=== PATIENT | female | born 1960 | race Caucasian/White ===

== ENCOUNTER 2018-09-07 08:31 | Emergency (ER) | payer OTHER ==
[2018-09-07 08:41] VITALS: BP 141/83
--- NOTE | 2018-09-07 09:01 | UC ---
Lower Extremity/Ankle HPI - HPI Summary HPI Summary: 58-year-old female presents with complaints of left leg pain. States approximately one month ago she was on vacation in [place] and was doing a lot of long distance traveling in her car. She was noting a lot of bilateral ankle swelling at the time which she states she has on occasion. She later noted in the area of tenderness to the lateral aspect of her left lower leg that appeared to be a bruise which has persisted since that time. States last night she started having a lot of aching pain in the left leg extending from her mid calf to mid thigh. Denies calf pain, swelling, erythema, chest pain, or shortness of breath. - History of Current Complaint Chief Complaint: UCLowerExtremity Stated Complaint: LT LEG PAIN Time Seen by Provider: 09/07/18 08:56 Hx Obtained From: Patient Pain Intensity: 5 - Allergies/Home Medications Allergies/Adverse Reactions: Allergies Allergy/AdvReac Type Severity Reaction Status Date / Time citalopram [From Celexa] Allergy Hives Verified 09/07/18 08:41 doxycycline AdvReac Severe Unknown Verified 09/07/18 08:41 Reaction Details OPIODS AdvReac Nausea Uncoded 09/07/18 08:41 Home Medications: Home Medications Estradiol/Levonorgestrel [Climara Pro] 1 dis TD DAILY WITH MEAL 09/07/18 [ History Confirmed 09/07/18] Meclizine TAB* [Antivert 12.5 TAB*] 12.5 mg PO TID PRN 09/07/18 [History Confirmed 09/07/18] Meloxicam 7.5 mg PO DAILY WITH MEAL 09/07/18 [History Confirmed 09/07/18] Ondansetron HCl [Zofran] 8 mg PO DAILY WITH MEAL 09/07/18 [History Confirmed ] PMH/Surg Hx/FS Hx/Imm Hx - Additional Past Medical History Additional PMH: Jeremiah's granulomatoss Cardiovascular History: Hypertension GI/ History: Gastroesophageal Reflux - Surgical History Surgical History: Yes Surgery Procedure, Year, and Place: GALLBLADDER - Family History Known Family History: Positive: Non-Contributory - Social History Occupation: Employed Full-time Lives: With Family Alcohol Use: Occasionally Substance Use Type: None Smoking Status (MU): Never Smoked Tobacco Have You Smoked in the Last Year: No Review of Systems All Other Systems Reviewed And Are Negative: Yes Constitutional: Negative: Fever, Chills Skin: Positive: Other - See HPI Respiratory: Negative: Shortness Of Breath, Cough Cardiovascular: Negative: Palpitations, Chest Pain Gastrointestinal: Positive: Negative Genitourinary: Positive: Negative Motor: Negative: Weakness Neurovascular: Negative: Decreased Sensation Musculoskeletal: Negative: Arthralgia, Calf Tenderness, Decreased ROM, Edema Neurological: Positive: Negative Is Patient Immunocompromised?: No Physical Exam - Summary Physical Exam Summary: GENERAL APPEARANCE: Well developed, well nourished, alert and cooperative, and appears to be in no acute distress. CARDIAC: Normal S1 and S2. No S3, S4 or murmurs. Rhythm is regular. There is no peripheral edema, cyanosis or pallor. Extremities are warm and well perfused. Capillary refill is less than 2 seconds. Peripheral pulses intact. LUNGS: Clear to auscultation without rales, rhonchi, wheezing or diminished breath sounds. ABDOMEN: Positive bowel sounds. Soft, nondistended, nontender. No guarding or rebound. No masses or hepatosplenomegally. MUSKULOSKELETAL: ROM intact to all extremities. No joint erythema or tenderness. Normal muscular development. Normal gait. EXTREMITIES: No significant deformity or joint abnormality. Circular area of ecchymosis approximately 2.5 cm in diameter noted to the lateral aspect of the left lower leg. Left calf supple and non-tender. No edema. Multiple varicosities noted to bilateral lower extremities without evidence of thrombophlebitis. SKIN: Skin normal color, texture and turgor with no lesions or eruptions. Triage Information Reviewed: Yes Vital Signs: Initial Vital Signs Temp 97.1 F 09/07/18 08:36 Pulse 82 09/07/18 08:36 Resp 18 09/07/18 08:36 BP 141/83 09/07/18 08:36 Pulse Ox 99 09/07/18 08:36 Vital Signs Reviewed: Yes Diagnostics - Radiology No standard instances Radiology Interpretation Completed By: Radiologist Summary of Radiographic Findings: Order Information: VL LOWER EXT VEINS LEFT. Accession Number: [id number]. CPT: 78135. INDICATION: Left leg pain. COMPARISON: There are no relevant prior studies available for comparison. TECHNIQUE: Multiple real-time, color flow and Doppler tracings of the left lower extremity were obtained. FINDINGS: The common femoral, femoral, profunda femoral and popliteal veins all demonstrate normal compressibility, augmentation with compression and phasic response with respiration. The posterior tibial and peroneal veins demonstrate normal compressibility and augmentation with compression. No fluid collection or mass is seen in the region of the patient's lump in the lateral calf. IMPRESSION: NO EVIDENCE FOR DEEP VENOUS THROMBOSIS. Lower Extremity Course/Dx - Course Course Of Treatment: 58-year-old female presents with complaints of left leg pain. States approximately one month ago she was on vacation in [place] and was doing a lot of long distance traveling in her car. She was noting a lot of bilateral ankle swelling at the time which she states she has on occasion. She later noted in the area of tenderness to the lateral aspect of her left lower leg that appeared to be a bruise which has persisted since that time. States last night she started having a lot of aching pain in the left leg extending from her mid calf to mid thigh. Denies calf pain, swelling, erythema, chest pain, or shortness of breath. Afebrile. Vital signs stable. Exam was remarkable for circular area of ecchymosis approximately 2.5 cm in diameter noted to the lateral aspect of the left lower leg. Left calf supple and non-tender. No edema. Multiple varicosities noted to bilateral lower extremities without evidence of thrombophlebitis. Venous ultrasound of the left lower extremity was obtained which showed no DVT. The area of concern was also ultrasounded and no fluid collection or mass was noted. I'm recommending watchful waiting at this time. She is to follow-up with primary care provider in 5-7 days if symptoms do not improve. Anticipatory guidance and warning symptoms are reviewed with the patient. Verbalizes understanding and agrees with plan of care. - Differential Dx/Diagnosis Differential Diagnosis/HQI/PQRI: Contusion, DVT, Phlebitis Provider Diagnosis: Left leg pain Discharge - Sign-Out/Discharge Documenting (check all that apply): Patient Departure All imaging exams completed and their final reports reviewed: Yes - Discharge Plan Condition: Stable Disposition: HOME Patient Education Materials: Leg Pain (ED) Referrals: Diego Reece MD [Primary Care Provider] - 5 Days Additional Instructions: The ultrasound of your leg today was normal. There was no evidence of a blood clot or mass. Follow up with your primary care provider in 5-7 days if symptoms persist. Seek immediate medical attention in the emergency room if you have severe leg pain, chest pain, shortness of breath, or any worsening of symptoms. - Billing Disposition and Condition Condition: STABLE Disposition: Home - Attestation Statements Provider Attestation: Per institutional requirements, I have reviewed the chart, however, I was not consulted specifically or made aware of this patient by the midlevel provider. I did not personally evaluate, interact with , or disposition this patient.
== END 2018-09-07 10:14 | disposition home or self-care (01) ==
LOC: UCEAST 08:31
DX: M79.605 Pain in left leg (principal); I83.93 Asymptomatic varicose veins of bilateral lower extremities; M31.30 Wegener's granulomatosis without renal involvement; I10 Essential (primary) hypertension; K21.9 Gastro-esophageal reflux disease without esophagitis; Z88.1 Allergy status to other antibiotic agents; Z88.5 Allergy status to narcotic agent; Z88.8 Allergy status to other drugs, medicaments and biological substances
CPT/HCPCS: 99211; G0463

== ENCOUNTER 2019-05-09 08:31 | Emergency (ER) | payer OTHER ==
--- OUTSIDE RECORDS SUMMARY | 2019-05-09 08:36 | XMS REPORT | Continuity of Care Document ---
:1960 External Reference #:[id number] Author Name Tri Nair O.D. (transmitted by agent of provider Rosa Greene) Address [address] [place] [address] Care Team Providers Name Role Phone Diego Reece M.D. - Endocrinology, Care Team Information Bottle Selector [phone] Diabetes & Metabolism Mario Camacho MD - Rheumatology Care Team Information Bottle Selector [phone] Sofía Vizcaino M.D. - Neurology Care Team Information Bottle Selector Problems Active Problems Provider Date Palpitations Onset: Keratoconjunctivitis sicca Krista Francis O.D. Onset: 10/12/2014 Tear film insufficiency Krista Francis O.D. 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 Onset: 10/12/2014 Refractory migraine Krista Francis O.D. Onset: 10/12/2014 Visual disturbance Krista Francis O.D. Onset: 01/03/2016 Chronic allergic conjunctivitis Krista Francis O.D. Onset: 01/17/2016 Internal hordeolum Tri Nair O.D. Onset: 01/19/2016 Degeneration of macula due to cyst, hole Krista Francis O.D. Onset: or pseudohole Filamentary keratitis Krista Francis O.D. Onset: 07/25/2016 Superficial punctate keratitis Krista Francis O.D. Onset: 07/25/2016 Serous detachment of retinal pigment Krista Francis O.D. Onset: 2016 epithelium Taking medication Krista Francis O.D. Onset: 12/11/2016 Cerebral vasculitis Onset: Nuclear senile cataract Krista Francis O.D. 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 Onset: Social History Type Date Description Comments Sex Unknown ETOH Use Occasionally consumes alcohol Tobacco Use Start: Unknown Patient has never smoked Recreational Drug Use Denies Drug Use Smoking Status Reviewed: 04/08/19 Patient has never smoked Allergies, Adverse Reactions, Alerts Active Allergies Reaction Severity Comments Date Celexa 09/22/2014 Doxycycline 09/22/2014 Medications Active Medications SIG Qnty Indications Ordering Provider Date FML Forte 1 drop left eye 15ml H16.142 Tri Macarioy, 04/08/2019 0.25% twice a day O.DStefania Suspension Theratears several times a Krista Morales 06/03/2017 0.25% day Dalila Francis Solution Lid Scrubs once a day Krista Morales 10/03/2016 Dalila Francis Refresh several times a 50units Krista Morales 04/30/2016 1.4-0.6% day Dalila Francis Solution Probiotic Unknown Capsules Climara Pro Unknown 0.045-0.015mg/Day Patches Weekly Zofran as needed - Unknown 4mg Tablets rarely Warm Compresses as needed Ruth Butt, O.DStefania Ventolin HFA as needed Unknown 108(90Base) mcg/Act Aerosol Blink Tears as needed Krista Morales Lubricating Eye Drops Dalila Francis 0.25% Solution Systane as needed Krista Morales 0.4-0.3% Dalila Francis Solution Systane Lid Wipes Krista Morales Pads Dalila Francis Meclizine HCL Take 1 Tablet By Unknown 12.5mg Mouth Two Times Tablets Daily as Needed For Vertigo Symbicort as needed Unknown 80-4.5mcg/Act Aerosol Immunizations Description No Information Available Vital Signs Date Vital Result Comment 05/13/2018 4:36pm BP Systolic 117 mmHg r wrist BP Diastolic 79 mmHg r wrist Results Description No Information Available Procedures Date Code Description Status 04/08/2019 33727 Est Patient Intermediate Exam Completed Medical Devices Description No Information Available Encounters Description No Information Available Assessments Date Code Description Provider 04/08/2019 H16.142 Punctate keratitis, left eye Tri Nair O.D. Plan of Treatment Future Appointment(s):04/15/2019 4:15 pm - Tri Nair O.D. at Mario Jon [facility], [facility]06/08/2018 - Tri Nair O.D.H16.142 Punctate keratitis, left eyeNew Medication:FML Forte 0.25 % - 1 drop left eye twice a dayComments: Smoking can increase the risk of developing or worsening any eye related disease , as well as affect your overall health. If you are a smoker, we strongly recommend that you quit.If you are not a smoker, we strongly recommend that you do not start. start FML drops twice a day in the left eyeif your symptoms worsen, please call the office to be seenFollow up:1 week or sooner as needed Functional Status Description No Information Available Mental Status Description No Information Available Referrals Description No Information Available
--- OUTSIDE RECORDS SUMMARY | 2019-05-09 08:36 | XMS REPORT | Continuity of Care Document ---
:1960 External Reference #:[id number] Author Name Krista Francis O.D. Address [address] [place] [id number] Care Team Providers Name Role Phone Diego Reece M.D. - Endocrinology, Care Team Information Capital Markets Specialist [phone] Diabetes & Metabolism Mario Camacho MD - Rheumatology Care Team Information Capital Markets Specialist [phone] Sofía Vizcaino M.D. - Neurology Care Team Information [employer] Markets Specialist Problems Active Problems Provider Date Palpitations Onset: [...] Use Denies Drug Use Smoking Status Reviewed: 04/16/19 Patient has never smoked Allergies, Adverse Reactions, Alerts Active Allergies Reaction Severity Comments Date Celexa 09/22/2014 Doxycycline 09/22/2014 Medications Active Medications SIG Qnty Indications Ordering Provider Date FML Forte 1 drop left eye 15ml H04.123 Tri Nair, 04/08/2019 0.25% twice a day O.DStefania Suspension [...] Vertigo Symbicort as needed Unknown 80-4.5mcg/Act Aerosol Sulfamethoxazole-Trim Unknown ethoprim 400-80mg/5ML Solution Immunizations Description No Information Available Vital Signs Date Vital Result Comment 05/13/2018 4:36pm BP Systolic 117 mmHg r wrist BP Diastolic 79 mmHg r wrist Results Description No Information Available Procedures Date Code Description Status 04/08/2019 99769 Est Patient Intermediate Exam Completed Medical Devices Description No Information Available Encounters Description No Information Available Assessments Date Code Description Provider 04/16/2019 H04.123 Dry eye syndrome of bilateral lacrimal Krista Francis O.D. glands 04/08/2019 H16.142 Punctate keratitis, left eye Tri Nair O.D. Plan of Treatment 04/16/2019 - Krista Francis O.D.H04.123 Dry eye syndrome of bilateral lacrimal glandsComments:Smoking can increase the risk of developing or worsening any eye related disease, as well as affect your overall health. If you are a smoker, we strongly recommend that you quit.If you are not a smoker, we strongly recommend that you do not start. stop fml dropsstart gel dropspreservative free tearshot compress 1-2xdayFollow up:3-4 week recheck Functional Status Description No Information Available Mental Status Description No Information Available Referrals Description No Information Available
--- OUTSIDE RECORDS SUMMARY | 2019-05-09 08:37 | XMS REPORT | Continuity of Care Document ---
:1960 External Reference #:[id number] Author Name Brandin Chanel MD (transmitted by agent of provider Ruth Palencia) Address [address] [place] [address] Care Team Providers Name Role Phone Diego Reece MD - Endocrinology, Care Team Information Denture Technician Diabetes & Metabolism Mario Camacho MD - Rheumatology Care Team Information Denture Technician [phone] Ngoc Fowler MD - Pulmonary Care Team Information Denture Technician Disease Problems Active Problems Provider Date Vertigo Sofía Vizcaino M.D. Onset: 11/20/2015 Note: history of BPV Migraine with aura Sofía Vizcaino M.D. Onset: 11/20/2015 Note: History of opthalmic migraines Disorder of lung Ngoc Fowler MD Onset: 04/04/2017 Social History Type Date Description Comments Sex Unknown ETOH Use Occasionally consumes alcohol Tobacco Use Start: Unknown Patient has never extensive history of smoked secondhand smoke exposure Recreational Drug Use Denies Drug Use Smoking Status Reviewed: 03/18/19 Patient has never extensive history of smoked secondhand smoke exposure Exercise Type/Frequency Exercises regularly Walking and bike riding and hiking. exercises 3 days/week Allergies, Adverse Reactions, Alerts Active Allergies Reaction Severity Comments Date Citalopram Urticaria Moderate 11/20/2015 Aspirin Nausea Moderate 11/20/2015 Doxycycline Ringing/fullness in ears Moderate 11/20/2015 Barbiturates Nausea and Vomiting Severe 11/20/2015 Nortriptyline heart palpitations 06/07/2016 Celexa 04/04/2017 Medications Active Medications SIG Qnty Indications Ordering Date Provider Cipro 1 tab po bid 10tabs Arminda 500mg Guillermo, MD 9 Tablets Clonazepam take 1 by mouth twice a 20tabs Sofía Vizcaino, day, as needed for M.D. 9 0.125mg Tablets vertigo/ anxiety Dispers Meclizine HCL take one capsule/tablet 60tabs M31.30 Mario Camacho, by mouth twice daily as M.D. 9 12.5mg Tablets needed for vertigo Voltaren apply 2 grams twice 200units Mario Camacho, 1% Gel daily as needed for M.D. 8 pain to the feet Symbicort 2 puff twice a day as 13.8gm Leydi needed OLY Slaughter 7 80-4.5mcg/Act Aerosol Zofran take 1 by [email or web address] as 30tabs Sofía Vizcaino, 4mg needed M.D. 7 Tablets Anucort-HC insert suppository in Unknown 25mg rectum twice a day as 0 Suppository needed Climara apply 1 Unknown patchtransdermally 0 0.025mg/24HR once weekly Patches Weekly Ventolin HFA 2 puffs by mouth every 16gm Ngoc 6h as needed MD Malcolm 0 108(90Base) mcg/Act Aerosol Mupirocin Apply To Inside Of Nose Unknown 2% Two Times Daily as 0 Ointment needed Triamcinolone Mix With Mupirocin And Unknown Acetonide Apply To Inside Of Nose 0 0.1% Two Times Daily as Ointment needed Propranolol HCL one tablet daily as Unknown needed for palpitations 0 20mg Tablets History Medications Naltrexone HCL 4.5 mg compounded 15gm R20.8 Mario Camacho, 11/18/2018 - in capsules by Sejal 02/16/2019 Powder mouth every day 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 Leydi 11/04/2018 - Advancement Device mandibular advance OLY Slaughter 02/16/2019 device for mild Device sleep apnea CBD [place] apply every 12 5units Z79.899 Mario Camacho, 10/01/2018 - hours as needed to M.DStefania 02/16/2019 4-3-9-1.2% Patches painful regions Medications Administered in Office Medication SIG Qnty Indications Ordering Provider Date Depomedrol 40MG Deangelo Ríos MD 02/08/2016 Injection Immunizations CPT Code Status Date Vaccine Lot # [id number] Given 03/24/2018 Pneumococcal Conjugate Vaccine 13 Valent For [id number] Intramuscular Use 22157 Given 02/10/2018 Influenza Virus Vaccine, Quadrivalent, Split, [id number] Preservative Free Vital Signs Date Vital Result Comment 03/18/2019 3:32pm Height 70 inches 5'10" Weight 200.00 lb Heart Rate 85 /min BP Systolic Sitting 137 mmHg L arm BP Diastolic Sitting 86 mmHg L arm O2 % BldC Oximetry 100 % BMI (Body Mass Index) 28.7 kg/m2 02/22/2019 10:35am Height 70 inches 5'10" Weight 200.00 lb Heart Rate 73 /min BP Systolic Sitting 126 mmHg L arm BP Diastolic Sitting 82 mmHg L arm O2 % BldC Oximetry 99 % BMI (Body Mass Index) 28.7 kg/m2 Results Test Date Facility Test Result H/L Range Note Neph Routine 03/15/2019 [facility] Total Protein < 4 mg/dL [address] Random Urine [place], [place] [id number] [phone] Creatinine Random Urine 35.78 mg/dL CBC Auto 03/15/2019 [facility] White Blood 6.6 10^3/uL Normal 3.5-10.[address] Count [place], [place] [id number] [phone] Red Blood Count 5.33 10^6/uL High 3.70-4.87 Hemoglobin 15.7 g/dL Normal 12.0-16.0 Hematocrit 46 % Normal 35-47 Mean Corpuscular Volume 86 fL Normal 80-97 Mean Corpuscular Hemoglobin 30 pg Normal 27-31 Mean Corpuscular HGB Conc 34 g/dL Normal 31-36 Red Cell Distribution Width 13 % Normal 10-15 Platelet Count 261 10^3/uL Normal 150-450 Mean Platelet Volume 7.7 fL Normal 7.4-10.4 Abs Neutrophils 3.6 10^3/uL Normal 1.5-7.7 Abs Lymphocytes 2.2 10^3/uL Normal 1.0-4.8 Abs Monocytes 0.5 10^3/uL Normal 0-0.8 Abs Eosinophils 0.2 10^3/uL Normal 0-0.6 Abs Basophils 0.0 10^3/uL Normal 0-0.2 Abs Nucleated RBC 0.0 10^3/uL Granulocyte % 55.4 % Lymphocyte % 34.1 % Monocyte % 7.4 % Eosinophil % 2.5 % Basophil % 0.6 % Nucleated Red Blood Cells % 0.0 Urinalysis Profile 03/15/2019 [facility] Urine Color Straw [address] [place] [address] [phone] Urine Appearance Clear Urine Specific Medora 1.005 Low 1.010-1.030 Urine pH 6.0 Normal 5-9 Urine Urobilinogen Negative Negative Urine Ketones Negative Negative Urine Protein Negative Negative Urine Leukocytes Negative Negative Urine Blood 1+ Abnormal Negative Urine Nitrite Negative Negative Urine Bilirubin Negative Negative Urine Glucose Negative Negative Urine White Blood Cell Absent Absent Urine Red Blood Cell Trace(0-2/hpf) Absent Urine Bacteria Absent Absent Urine Squamous Epithelial Cell Present Abnormal Absent Basic Metabolic 03/15/2019 [facility] Sodium 138 mmol/L Normal 135-[address] [place] [address] [phone] Potassium 4.5 mmol/L Normal 3.5-5.0 Chloride 105 mmol/L Normal 101-111 Co2 Carbon Dioxide 28 mmol/L Normal 22-32 Anion Gap 5 mmol/L Normal 2-11 Glucose 90 mg/dL Normal 70-100 Blood Urea Nitrogen 19 mg/dL Normal 6-24 Creatinine 0.94 mg/dL Normal 0.51-0.95 BUN/Creatinine Ratio 20.2 High 8-20 Calcium 9.2 mg/dL Normal 8.6-10.3 Egfr Non- 61.2 >60 Egfr 74.0 >60 1 Neutrophil Cytoplasmic 03/15/2019 [facility] C-Anca Negative Negative AB [address] [place] [address] [phone] P-Anca Negative Negative 2 Anca Panel For 03/15/2019 [facility] Myeloperoxidase AB < 0.2 U [address] [place] [address] [phone] Proteinase 3 AB < 0.2 U 4 Laboratory test 03/15/2019 [facility] Myeloperoxidase AB <0.2 U [address] [place] [address] [phone] Proteinase 3 <0.2 U 6 Anti Nuclear Antibody 0.6 U 7 Erythrocyte Sed Rate 5 mm/Hr Normal 0-29 Surgical 03/10/2019 [facility] Surgical SEE RESULT [address] [place] [address] [phone] PDFReport [id number] <SEE NOTE> Platelet 03/10/2019 [facility] Platelet 269 10^3/uL Normal 150 -[address] [place] [address] [phone] Mean Platelet Volume 7.2 fL Low 7.4-10.4 Inr/Protime 03/10/2019 [facility] Inr 1.00 Normal 0.82-1.[address] [place] [address] [phone] Laboratory test 03/10/2019 [facility] Partial 33.6 Normal 26.0 -38.[address] [place] [address] PTT [phone] Urine 02/21/2019 [facility] Ur 206.[address] Microalbumin mg/[place] [address] (mg/L) [phone] Urine Creatinine 42.16 mg/dL Urine Microalbumin/Creatinine 489.5 High <31 Urine Culture And 02/21/2019 [facility] Urine SEE RESULT [address] [place] [address] [phone] Basic Metabolic 02/21/2019 [facility] Sodium 140 mmol/L Normal 135- Panel [address] [place] [address] [phone] Potassium 4.1 mmol/L Normal 3.5-5.0 Chloride 105 mmol/L Normal 101-111 Co2 Carbon Dioxide 29 mmol/L Normal 22-32 Anion Gap 6 mmol/L Normal 2-11 Glucose 110 mg/dL High 70-100 Blood Urea Nitrogen 19 mg/dL Normal 6-24 Creatinine 0.98 mg/dL High 0.51-0.95 BUN/Creatinine Ratio 19.4 Normal 8-20 Calcium 9.2 mg/dL Normal 8.6-10.3 Egfr Non- 58.3 >60 Egfr 70.5 >60 11 Urinalysis Profile 02/21/2019 [facility] Urine Appearance Cloudy [address] [place] [address] [phone] Urine Specific Medora 1.006 Low 1.010-1.030 Urine pH 6.0 Normal 5-9 Urine Urobilinogen Negative Negative Urine Ketones Negative Negative Urine Protein 2+(100 mg/dL) Abnormal Negative Urine Leukocytes 3+ Abnormal Negative Urine Blood 3+ Abnormal Negative Urine Nitrite Negative Negative Urine Bilirubin Negative Negative Urine Glucose Negative Negative Urine White Blood Cell 3+(>20/hpf) Abnormal Absent Urine Red Blood Cell 3+(>10/hpf) Abnormal Absent Urine Bacteria Absent Absent Urine Squamous Epithelial Cell Present Abnormal Absent Urine Color Red Abnormal CBC Auto 02/21/2019 [facility] White Blood 10.9 10^3/uL High 3.5-10.[address] [place] [address] [phone] Red Blood Count 5.16 10^6/uL High 3.70-4.87 Hemoglobin 15.1 g/dL Normal 12.0-16.0 Hematocrit 45 % Normal 35-47 Mean Corpuscular Volume 86 fL Normal 80-97 Mean Corpuscular Hemoglobin 29 pg Normal 27-31 Mean Corpuscular HGB Conc 34 g/dL Normal 31-36 Red Cell Distribution Width 14 % Normal 10-15 Platelet Count 257 10^3/uL Normal 150-450 Mean Platelet Volume 7.3 fL Low 7.4-10.4 Abs Neutrophils 7.9 10^3/uL High 1.5-7.7 Abs Lymphocytes 2.1 10^3/uL Normal 1.0-4.8 Abs Monocytes 0.8 10^3/uL Normal 0-0.8 Abs Eosinophils 0.1 10^3/uL Normal 0-0.6 Abs Basophils 0.0 10^3/uL Normal 0-0.2 Abs Nucleated RBC 0.0 10^3/uL Granulocyte % 72.3 % Lymphocyte % 18.9 % Monocyte % 7.2 % Eosinophil % 1.2 % Basophil % 0.4 % Nucleated Red Blood Cells % 0.0 Neph Routine 02/21/2019 [facility] Total Protein Random 69 mg/ dL [address] [place] [address] [phone] Creatinine Random Urine 42.16 mg/dL Laboratory test 02/21/2019 [facility] Anti Nuclear 0.6 U [address] [place] [address] [phone] Bety Igg AB Reflex 02/21/2019 [facility] SS-A/Ro Antibody <0.2 U [address] [place], [place] [address] [phone] SS-B/La Antibody <0.2 U 14 Sm (Ron) IgG Antibody <0.2 U 15 DRY CHAIN PULLER Antibody, IgG 0.9 U 16 Scl-70 (Scleroderma) Antibody <0.2 U 17 Ally-1 Antibody <0.2 U 18 Laboratory test 02/21/2019 [facility] Glomerular <0.2 U [address] [place] [address] Membrane [phone] Neutrophil 02/21/2019 [facility] C-Anca Negative Negative Cytoplasmic AB [address] [place] [address] [phone] P-Anca Negative Negative 20 Anca Panel For 02/21/2019 [facility] Myeloperoxidase AB < 0.2 U [address] [place] [address] [phone] Proteinase 3 AB < 0.2 U 22 Laboratory test 12/29/2018 [facility] Erythrocyte Sed 5 mm/Hr Normal 0-[address] [place] [address] [phone] C Reactive Protein 5.18 mg/L Normal <8.01 Laboratory test finding 11/27/2018 [facility] Proteinase 3 <0.2 U [address] [place] [address] [phone] Myeloperoxidase AB <0.2 U 24 Nuclear AB 11/27/2018 [facility] Nuclear Ab Positive 1:160 Abnormal 25 (Myriam) By Ifa [address] (Myriam) by Ifa, [place] [address] IgG [phone] Myriam Titer: 1:160 Myriam Pattern: Dense Fine Speck <SEE NOTE> 26 Anca AB Ser 11/12/2018 [facility] C-Anca Positive 1:32 Abnormal Negative If [address] [place], [place] [address] [phone] P-Anca Negative Negative 27 Laboratory test 11/12/2018 [facility] Erythrocyte Sed 13 mm/Hr Normal 0-[address] [place] [place] [address] [phone] CBC Auto Diff 11/12/2018 [facility] White Blood 5.9 Normal 3.5 -10.[address] Count 10^3/[place] [address] [phone] Red Blood Count 5.45 10^6/uL High 3.70-4.87 Hemoglobin 15.9 g/dL Normal 12.0-16.0 Hematocrit 47 % Normal 35-47 Mean Corpuscular Volume 86 fL Normal 80-97 Mean Corpuscular Hemoglobin 29 pg Normal 27-31 Mean Corpuscular HGB Conc 34 g/dL Normal 31-36 Red Cell Distribution Width 14 % Normal 10-15 Platelet Count 240 10^3/uL Normal 150-450 Mean Platelet Volume 8.6 fL Normal 7.4-10.4 Abs Neutrophils 3.0 10^3/uL Normal 1.5-7.7 Abs Lymphocytes 2.1 10^3/uL Normal 1.0-4.8 Abs Monocytes 0.5 10^3/uL Normal 0-0.8 Abs Eosinophils 0.2 10^3/uL Normal 0-0.6 Abs Basophils 0.0 10^3/uL Normal 0-0.2 Abs Nucleated RBC 0.0 10^3/uL Granulocyte % 50.9 % Lymphocyte % 36.4 % Monocyte % 9.1 % Eosinophil % 3.0 % Basophil % 0.6 % Nucleated Red Blood Cells % 0.2 Comp Metabolic 11/12/2018 [facility] Sodium 141 mmol/L Normal 135-[address] [place] [address] [phone] Potassium 4.4 mmol/L Normal 3.5-5.0 Chloride 106 mmol/L Normal 101-111 Co2 Carbon Dioxide 29 mmol/L Normal 22-32 Anion Gap 6 mmol/L Normal 2-11 Glucose 88 mg/dL Normal 70-100 Blood Urea Nitrogen 16 mg/dL Normal 6-24 Creatinine 0.97 mg/dL High 0.51-0.95 BUN/Creatinine Ratio 16.5 Normal 8-20 Calcium 9.7 mg/dL Normal 8.6-10.3 Total Protein 6.8 g/dL Normal 6.4-8.9 Albumin 4.2 g/dL Normal 3.2-5.2 Globulin 2.6 g/dL Normal 2-4 Albumin/Globulin Ratio 1.6 Normal 1-3 Total Bilirubin 0.50 mg/dL Normal 0.2-1.0 Alkaline Phosphatase 107 U/L High 34-104 Alt 22 U/L Normal 7-52 Ast 21 U/L Normal 13-39 Egfr Non- 59.0 >60 Egfr 71.4 >60 28 Urinalysis Profile 11/12/2018 [facility] Urine Color Straw [address] [place] [address] [phone] Urine Appearance Clear Urine Specific Medora 1.004 Low 1.010-1.030 Urine pH 6.0 Normal 5-9 Urine Urobilinogen Negative Negative Urine Ketones Negative Negative Urine Protein Negative Negative Urine Leukocytes Negative Negative Urine Blood Negative Negative Urine Nitrite Negative Negative Urine Bilirubin Negative Negative Urine Glucose Negative Negative Anca AB Ser If 10/01/2018 [facility] C-Anca Negative Negative [address] [place] [address] [phone] P-Anca Negative Negative 29 Laboratory test 10/01/2018 [facility] Erythrocyte Sed 9 mm/Hr Normal 0-[address] [place] [address] [phone] C Reactive Protein 2.10 mg/L Normal <8.01 Connective Tissue 10/01/2018 [facility] Anti-Nuclear 0.4 U [address] [place] [address] [phone] Cyclic Citrullinated Peptide <15.6 U 31 Interpretation See Comment 32 CBC Auto 10/01/2018 [facility] White Blood 5.8 10^3/uL Normal 3.5-10.[address] [place] [address] [phone] Red Blood Count 5.51 10^6/uL High 3.70-4.87 Hemoglobin 15.9 g/dL Normal 12.0-16.0 Hematocrit 47 % Normal 35-47 Mean Corpuscular Volume 86 fL Normal 80-97 Mean Corpuscular Hemoglobin 29 pg Normal 27-31 Mean Corpuscular HGB Conc 34 g/dL Normal 31-36 Red Cell Distribution Width 14 % Normal 10.5-15 Platelet Count 252 10^3/uL Normal 150-450 Mean Platelet Volume 8.2 fL Normal 7.4-10.4 Abs Neutrophils 3.3 10^3/uL Normal 1.5-7.7 Abs Lymphocytes 1.8 10^3/uL Normal 1.0-4.8 Abs Monocytes 0.5 10^3/uL Normal 0-0.8 Abs Eosinophils 0.2 10^3/uL Normal 0-0.6 Abs Basophils 0.0 10^3/uL Normal 0-0.2 Abs Nucleated RBC 0.0 10^3/uL Granulocyte % 56.6 % Lymphocyte % 31.7 % Monocyte % 8.0 % Eosinophil % 3.1 % Basophil % 0.6 % Nucleated Red Blood Cells % 0.4 Comp Metabolic 10/01/2018 [facility] Sodium 140 mmol/L Normal 135-145 Panel [address] [place] [address] [phone] Potassium 4.6 mmol/L Normal 3.5-5.0 Chloride 108 mmol/L Normal 101-111 Co2 Carbon Dioxide 28 mmol/L Normal 22-32 Anion Gap 4 mmol/L Normal 2-11 Glucose 83 mg/dL Normal 70-100 Blood Urea Nitrogen 17 mg/dL Normal 6-24 Creatinine 0.94 mg/dL Normal 0.51-0.95 BUN/Creatinine Ratio 18.1 Normal 8-20 Calcium 9.1 mg/dL Normal 8.6-10.3 Total Protein 6.6 g/dL Normal 6.4-8.9 Albumin 4.2 g/dL Normal 3.2-5.2 Globulin 2.4 g/dL Normal 2-4 Albumin/Globulin Ratio 1.8 Normal 1-3 Total Bilirubin 0.60 mg/dL Normal 0.2-1.0 Alkaline Phosphatase 105 U/L High 34-104 Alt 19 U/L Normal 7-52 Ast 20 U/L Normal 13-39 Egfr Non- 61.2 >60 Egfr 74.0 >60 33 Laboratory test finding 10/01/2018 [facility] Proteinase 3 <0.2 U 34 [address] [place] [address] [phone] Myeloperoxidase AB <0.2 U 35 1 Because ethnic data is not always readily available, this report includes an eGFR for both -Americans and non- Americans. The National Kidney Disease Education Program (NKDEP) does not endorse the use of the MDRD equation for patients that are not between the ages of 18 and 70, are , have extremes of body size, muscle mass, or nutritional status, or are non- or non-. According to the National Kidney Foundation, irrespective of diagnosis, the stage of the disease is based on the level of kidney function: Stage Description GFR(mL/min/1.73 m(2)) 1 Kidney damage with normal or decreased GFR 90 2 Kidney damage with mild decrease in GFR 60-89 3 Moderate decrease in GFR 30-59 4 Severe decrease in GFR 15-29 5 Kidney failure <15 (or dialysis) 2 Negative for cANCA and pANCA patterns by immunofluorescence. ADDITIONAL INFORMATION This test was developed and its performance characteristics determined by [facility] in a manner consistent with CLIA requirements. This test has not been cleared or approved by the U.S. Food and Drug Administration. Test Performed by: [facility] [place] [address] Picture Engraver: Adin Bower M.D. Ph.D.; CLIA# [id number] 3 REFERENCE VALUE <0.4 (Negative) 4 REFERENCE VALUE <0.4 (Negative) Test Performed by: [facility] [place] [address] Picture Engraver: Adin Bower M.D. Ph.D.; CLIA# [id number] 5 REFERENCE VALUE <0.4 (Negative) Test Performed by: [place] [address] Picture Engraver: Adin Bower M.D. Ph.D.; CLIA# [id number] 6 REFERENCE VALUE <0.4 (Negative) Test Performed by: [facility] [place] [address] Picture Engraver: Adin Bower M.D. Ph.D.; CLIA# [id number] 7 REFERENCE VALUE <=1.0 (Negative) Test Performed by: [facility] [place] [address] Picture Engraver: Adin Bower M.D. Ph.D.; CLIA# [id number] 8 SEE RESULT BELOW Name: SPENCER DOTSON : [address]: Brandin Chanel MD Acct: [id number] Unit: [id number] AGE: 58 Location: Re03/10/19 SEX: F Status: REG REF SPEC: [id number] JERI: 03/10/19 [facility] DR: Jean Mallory MD REQ: [id number] RECD: 03/10/19 STATUS: JO ASHRAF DR: Brandin Chanel MD _ ORDERED: PTH HANDLING CH, LEVEL 1, INTRAOP CON-GR FINAL DIAGNOSIS Kidney, right, biopsy: Pending diagnosis from [facility] Renal Pathology. CLINICAL HISTORY Vasculitis GROSS DESCRIPTION The specimen is received fresh labeled, Right Kidney, and consists of two valle -red soft tissue cores averaging 1.8 x 0.1 cm. The specimen is entirely submitted to [facility] for renal analysis. Per established hospital medical staff protocol, no tissue is submitted. Gross only. Signed by and Reported on: Haley Donnelly MD 03/10/19 1258 END OF REPORT DEPARTMENT OF PATHOLOGY, [address] [place] [address] Juan Mendoza M.D. Director [facility] # [id number] Standard intensity warfarin therapeutic range: 2.0-3.0 High intensity warfarin therapeutic range: 2.5-3.5 10 SEE RESULT BELOW Name: SPENCER DOTSON : [address]: Arminda Li MD Acct: [id number] Unit: [id number] AGE: 58 Location: [facility] Re02/21/19 SEX: F Status: REG REF SPEC: [id number] JERI: 02/21/[address]: Arminda Li MD REQ: [id number] RECD: 02/21/19 STATUS: COMP _ SOURCE: URINE SPDESC: ORDERED: Urine Culture Procedure Result Reported Site Urine Culture Final 02/23/19- 1217 ML No growth of clinically significant organisms * ML - Main Lab . END OF REPORT DEPARTMENT OF PATHOLOGY, [address] [place] [address] Juan Mendoza M.D. Director [facility] # [id number] 11 Because ethnic data is not always readily available, this report includes an eGFR for both -Americans and non- Americans. The National Kidney Disease Education Program (NKDEP) does not endorse the use of the MDRD equation for patients that are not between the ages of 18 and 70, are , have extremes of body size, muscle mass, or nutritional status, or are non- or non-. According to the National Kidney Foundation, irrespective of diagnosis, the stage of the disease is based on the level of kidney function: Stage Description GFR(mL/min/1.73 m(2)) 1 Kidney damage with normal or decreased GFR 90 2 Kidney damage with mild decrease in GFR 60-89 3 Moderate decrease in GFR 30-59 4 Severe decrease in GFR 15-29 5 Kidney failure <15 (or dialysis) 12 REFERENCE VALUE <=1.0 (Negative) Test Performed by: [facility] [address] [place] [address] Picture Engraver: Adin Bower M.D. Ph.D.; [facility]# [id number] 13 REFERENCE VALUE <1.0 (Negative) 14 REFERENCE VALUE <1.0 (Negative) 15 REFERENCE VALUE <1.0 (Negative) 16 REFERENCE VALUE <1.0 (Negative) 17 REFERENCE VALUE <1.0 (Negative) 18 REFERENCE VALUE <1.0 (Negative) Test Performed by: [facility] [place] [address] Picture Engraver: Adin Bower M.D. Ph.D.; CLIA# [id number] 19 REFERENCE VALUE <1.0 (Negative) Test Performed by: [facility] [place] [address] Picture Engraver: Adin Bower M.D. Ph.D.; CLIA# [id number] 20 Negative for cANCA and pANCA patterns by immunofluorescence. ADDITIONAL INFORMATION This test was developed and its performance characteristics determined by [facility] in a manner consistent with CLIA requirements. This test has not been cleared or approved by the U.S. Food and Drug Administration. Test Performed by: [facility] [place] [address] Picture Engraver: Adin Bower M.D. Ph.D.; CLIA# [id number] 21 REFERENCE VALUE <0.4 (Negative) 22 REFERENCE VALUE <0.4 (Negative) Test Performed by: [facility] [place] [address] Picture Engraver: Adin Bower M.D. Ph.D.; CLIA# [id number] 23 REFERENCE VALUE <0.4 (Negative) Test Performed by: [facility] [place] [address] 24 REFERENCE VALUE <0.4 (Negative) Test Performed by: [facility] [place] [address] 25 REFERENCE VALUE <1:80 (Negative) 26 Dense Fine Speckled Test Performed by: [facility] [place] [address] 27 Positive for cANCA pattern by immunofluorescence. Suggest further testing for anti-proteinase 3 (anti-PR3) antibodies, if clinically indicated. ADDITIONAL INFORMATION This test was developed and its performance characteristics determined by [facility] in a manner consistent with CLIA requirements. This test has not been cleared or approved by the U.S. Food and Drug Administration. Test Performed by: [facility] [place] [address] 28 Because ethnic data is not always readily available, this report includes an eGFR for both -Americans and non- Americans. The National Kidney Disease Education Program (NKDEP) does not endorse the use of the MDRD equation for patients that are not between the ages of 18 and 70, are , have extremes of body size, muscle mass, or nutritional status, or are non- or non-. According to the National Kidney Foundation, irrespective of diagnosis, the stage of the disease is based on the level of kidney function: Stage Description GFR(mL/min/1.73 m(2)) 1 Kidney damage with normal or decreased GFR 90 2 Kidney damage with mild decrease in GFR 60-89 3 Moderate decrease in GFR 30-59 4 Severe decrease in GFR 15-29 5 Kidney failure <15 (or dialysis) 29 Negative for cANCA and pANCA patterns by immunofluorescence. ADDITIONAL INFORMATION This test was developed and its performance characteristics determined by [facility] in a manner consistent with CLIA requirements. This test has not been cleared or approved by the U.S. Food and Drug Administration. Test Performed by: [facility] [address] [facility], [place] [address] 30 REFERENCE VALUE <=1.0 (Negative) 31 REFERENCE VALUE <20.0 (Negative) 32 Tests for antibodies to dsDNA and BETY antigens are not performed automatically unless the MYRIAM result is > or = 3.0 U. Studies performed at [facility] indicate that positive MYRIAM results <3.0 U are rarely accompanied by positive second order tests. Test Performed by: [facility] [address] [place] [address] 33 Because ethnic data is not always readily available, this report includes an eGFR for both -Americans and non- Americans. The National Kidney Disease Education Program (NKDEP) does not endorse the use of the MDRD equation for patients that are not between the ages of 18 and 70, are , have extremes of body size, muscle mass, or nutritional status, or are non- or non-. According to the National Kidney Foundation, irrespective of diagnosis, the stage of the disease is based on the level of kidney function: Stage Description GFR(mL/min/1.73 m(2)) 1 Kidney damage with normal or decreased GFR 90 2 Kidney damage with mild decrease in GFR 60-89 3 Moderate decrease in GFR 30-59 4 Severe decrease in GFR 15-29 5 Kidney failure <15 (or dialysis) 34 REFERENCE VALUE <0.4 (Negative) Test Performed by: [facility] [address] [place] [address] 35 REFERENCE VALUE <0.4 (Negative) Test Performed by: [facility] [address] [place] [id number] Procedures Date Code Description Status 11/03/2018 98033 EKG Tracing & Interpretation Completed 10/01/2018 26594 Polysomnography Sleep Staging 4+ Parameters Completed 09/22/2018 38961 Holter Monitor Review (24 hr)dr review & interp only Completed 09/21/2018 95311 ECG Monitor/Recording W/Visual Superimposition Completed Scanning 09/17/2018 77872 Sleep Study Unattended,HRT Rate,Oxygen Sat,Resp Completed Effort/Airflow 11/28/2016 980084837 Bone Mineral Density Test Completed 10/03/2016 841368400 Diabetic Retinal Eye Exam Completed 08/12/2016 [id number] Diabetic Retinal Eye Exam Completed 07/29/2016 620690027 Diabetic Retinal Eye Exam Completed 07/25/2016 [id number] Diabetic Retinal Eye Exam Completed Medical Devices Description No Information Available Encounters Type Date Location Provider Dx Diagnosis Office Visit 02/17/2019 [facility] Sof[facility] Vizcaino, M35.9 Systemic 9:00a MStefaniaDStefania involvement of connective tissue, unspecified R51 Headache R42 Dizziness and giddiness Office Visit 12/29/2018 8:40a Rheumatology Mario R20.8 Other disturbances Services Of Zechariah Camacho M.D. of skin sensation M35.9 Systemic involvement of connective tissue, unspecified R76.0 Raised antibody titer R76.8 Other specified abnormal immunological findings in serum Office Visit 11/18/2018 3:40p Rheumatology Mario M35.9 Systemic Services Of Zechariah Camacho M.D. involvement of connective tissue, unspecified R20.8 Other disturbances of skin sensation R76.0 Raised antibody titer R76.8 Other specified abnormal immunological findings in serum Office Visit 11/04/2018 Pulmonology And Leydi G47.33 Obstructive sleep 8:00a Sleep Services Of OLY Slaughter apnea (adult) [facility] (pediatric) R06.02 Shortness of breath Office Visit 11/03/2018 Demi Anglin G47.33 Obstructive sleep 4:20p Cardiology Sejal Ferrara apnea (adult) (pediatric) R00.2 Palpitations I49.3 Ventricular premature depolarization R94.31 Abnormal electrocardiogram [ECG] [EKG] I36.1 Nonrheumatic tricuspid (valve) insufficiency Office Visit 10/01/2018 8:40a Rheumatology Mario M35.9 Systemic Services Of Zechariah Camacho M.D. involvement of connective tissue, unspecified Z79.899 Other half-way (current) drug therapy R20.8 Other disturbances of skin sensation A88.1 Epidemic vertigo R10.2 Pelvic and perineal pain Assessments Date Code Description Provider 03/18/2019 R76.0 Raised antibody titer Brandin Chanel MD 03/18/2019 M35.9 Systemic involvement of connective Brandin Chanel MD tissue, unspecified 02/22/2019 R76.0 Raised antibody titer Brandin Chanel MD 02/22/2019 M35.9 Systemic involvement of connective Brandin Chanel MD tissue, unspecified 02/17/2019 M35.9 Systemic involvement of connective Sofía Vizcaino M.D. tissue, unspecified 02/17/2019 R51 Headache Sofía Vizcaino M.D. 02/17/2019 R42 Dizziness and giddiness Sofía Vizcaino M.D. 12/29/2018 R20.8 Other disturbances of skin sensation Mario Camacho M.D. 12/29/2018 M35.9 Systemic involvement of connective Mario Camacho M.D. tissue, unspecified 12/29/2018 R76.0 Raised antibody titer Mario Camacho M.D. 12/29/2018 R76.8 Other specified abnormal immunological Mario Camacho M.D. findings in serum 11/18/2018 M35.9 Systemic involvement of connective Mario Camacho M.D. tissue, unspecified 11/18/2018 R20.8 Other disturbances of skin sensation Mario Camacho M.D. 11/18/2018 R76.0 Raised antibody titer Mario Camacho M.D. 11/18/2018 R76.8 Other specified abnormal immunological Mario Camacho M.D. findings in serum 11/04/2018 G47.33 Obstructive sleep apnea (adult) Leydi Slaughter NP (pediatric) 11/04/2018 R06.02 Shortness of breath Leydi Slaughter NP 11/03/2018 G47.33 Obstructive sleep apnea (adult) Nori Ferrara M.D. (pediatric) 11/03/2018 R00.2 Palpitations Nori Ferrara M.D. 11/03/2018 I49.3 Ventricular premature depolarization Nori Ferrara M.D. 11/03/2018 R94.31 Abnormal electrocardiogram [ECG] [EKG] Nori Ferrara M.D. 11/03/2018 I36.1 Nonrheumatic tricuspid (valve) Nori Ferrara M.D. insufficiency 10/01/2018 G47.33 Obstructive sleep apnea (adult) Ngoc Fowler MD (pediatric) 10/01/2018 M35.9 Systemic involvement of connective Mario Camacho M.D. tissue, unspecified 10/01/2018 Z79.899 Other half-way (current) drug therapy Mario Camacho M.D. 10/01/2018 R20.8 Other disturbances of skin sensation Mario Camacho M.D. 10/01/2018 A88.1 Epidemic vertigo Mario Camacho M.D. 10/01/2018 R10.2 Pelvic and perineal pain Mario Camacho M.D. 09/22/2018 R00.2 Palpitations Nori Ferrara M.D. 09/22/2018 I49.3 Ventricular premature depolarization Nori Ferrara M.D. 09/21/2018 R00.2 Palpitations Nurse Visit cc 09/21/2018 I49.3 Ventricular premature depolarization Nurse Visit cc 09/17/2018 G47.9 Sleep disorder, unspecified Ngoc Fowler MD 09/17/2018 R53.83 Other fatigue Ngoc Fowler MD Plan of Treatment Future Appointment(s):03/29/2019 3:00 pm - Alma Downey, N.P. at [facility]03/23/2019 8:30 am - Nurse Visit cc at [facility]03/22/2019 10 :00 am - Nurse Visit cc at [facility]05/14/2019 9:30 am - Sofía Vizcaino M.D. at [facility]03/31/2019 8:40 am - Mario Camacho M.D. at [facility]06/10/2019 9:00 am - Ngoc Fowler MD at [facility]03/18/2019 - Brandin Chanel, MDR76.0 Raised antibody nubopW13.9 Systemic involvement of connective tissue, unspecified Functional Status Description No Information Available Mental Status Description No Information Available Referrals Refer to Dr Reason for Referral Status Appt Date Simone Keyes D.D.S. MAD fabrication for mild DELANO [facility] [address] [place] [phone] Beth Romano M.D. Please evaluate for POTS disease in Sent patient with dysautonomia [address] [place] [address] [phone]
--- OUTSIDE RECORDS SUMMARY | 2019-05-09 08:37 | XMS REPORT | Continuity of Care Document ---
:1960 External Reference #:[id number] Author Name Mario Camacho M.D. (transmitted by agent of provider Elena Motta) Address [address] [place] [id number] Care Team Providers Name Role Phone Diego Reece MD - Endocrinology, Care Team Information [employer] Diabetes & Metabolism Mario Camacho MD - Rheumatology Care Team Information [employer] Ngoc Fowler MD - Pulmonary Care Team Information [employer] Disease Problems Active Problems Provider Date Vertigo [...] Use Denies Drug Use Smoking Status Reviewed: 04/09/19 Patient has never extensive history of smoked [...] 1 tab po bid 10tabs Arminda 500mg MD Guillermo 9 Tablets Clonazepam take 1 by mouth [...] 7 80-4.5mcg/Act Aerosol Zofran take 1 by [id number] as 30tabs Sofía Vizcaino, 4mg needed M.D. [...] 02/16/2019 device for mild Device sleep apnea Medications Administered in Office Medication SIG Qnty Indications Ordering Provider Date Depomedrol 40MG Deangelo Ríos MD 02/08/2016 Injection Immunizations CPT Code Status Date Vaccine Lot # [id number] Given 03/24/2018 Pneumococcal Conjugate Vaccine 13 Valent For [id number] Intramuscular Use 34944 Given 02/10/2018 Influenza Virus Vaccine, Quadrivalent, Split, [id number] Preservative Free Vital Signs Date Vital Result Comment 04/09/2019 12:01pm Height 70 inches 5'10" Heart Rate 81 /min BP Systolic Sitting 132 mmHg BP Diastolic Sitting 78 mmHg Body Temperature 97.7 F Pain Level 0 O2 % BldC Oximetry 98 % 03/18/2019 3:32pm Height 70 inches 5'10" Weight 200.00 lb Heart Rate 85 /min BP Systolic Sitting 137 mmHg L arm BP Diastolic Sitting 86 mmHg L arm O2 % BldC Oximetry 100 % BMI (Body Mass Index) 28.7 kg/m2 Results Test Acquired Date Facility Test Result H/L Range Note Neph Routine 03/15/2019 [facility] Total Protein < 4 mg/dL [address] [place] [address] [phone] Creatinine Random Urine 35.78 mg/dL CBC Auto 03/15/2019 [facility] White Blood 6.6 10^3/uL Normal 3.5-10.[address] Count [place], [place] [id number] [phone] Red Blood Count 5.33 10^6/uL High 3.70-4.87 [...] Blood Cells % 0.0 Urinalysis Profile 03/15/2019 [facility] Urine Color Straw [address] [place] [address] [phone] Urine Appearance Clear Urine Specific Gillespie 1.005 Low 1.010-1.030 Urine pH 6.0 Normal [...] Cell Present Abnormal Absent Basic Metabolic 03/15/2019 [facility] Sodium 138 mmol/L Normal 135-145 Panel [address] [place] [address] [phone] Potassium 4.5 mmol/L Normal 3.5-5.0 Chloride 105 mmol/L Normal 101-111 Co2 Carbon Dioxide 28 mmol/L Normal 22-32 Anion Gap 5 mmol/L Normal 2-11 Glucose 90 mg/dL Normal 70-100 Blood Urea Nitrogen 19 mg/dL Normal 6-24 Creatinine 0.94 mg/dL Normal 0.51-0.95 BUN/Creatinine Ratio 20.2 High 8-20 Calcium 9.2 mg/dL Normal 8.6-10.3 Egfr Non- 61.2 >60 Egfr 74.0 >60 1 Neutrophil Cytoplasmic 03/15/2019 [facility] C-Anca Negative Negative AB [address] [place] [address] [phone] P-Anca Negative Negative 2 Anca Panel For 03/15/2019 [facility] Myeloperoxidase AB < 0.2 U 3 Vasculitis [address] [place] [address] [phone] Proteinase 3 AB < 0.2 U 4 Laboratory test 03/15/2019 [facility] Myeloperoxidase AB <0.2 U 5 [place] [address] [phone] Proteinase 3 <0.2 U 6 Anti Nuclear Antibody 0.6 U 7 Erythrocyte Sed Rate 5 mm/Hr Normal 0-29 Surgical 03/10/2019 [facility] Surgical SEE RESULT [address] [place] [address] [phone] PDFReport [id number] <SEE NOTE> Platelet 03/10/2019 [facility] Platelet 269 10^3/uL Normal 150 -[address] [place] [address] [phone] Mean Platelet Volume 7.2 fL Low 7.4-10.4 Inr/Protime 03/10/2019 [facility] Inr 1.00 Normal 0.82-1.[address] [place] [address] [phone] Laboratory test 03/10/2019 [facility] Partial 33.6 Normal 26.0 -38.[address] [place] [address] PTT [phone] Urine 02/21/2019 [facility] Ur 206.[address] Microalbumin mg/[place] [address] (mg/L) [phone] Urine Creatinine 42.16 mg/dL Urine Microalbumin/Creatinine 489.5 High <31 Urine Culture And 02/21/2019 [facility] Urine SEE RESULT [address] [place] [address] [phone] Basic Metabolic 02/21/2019 [facility] Sodium 140 mmol/L Normal 135- Panel [address] [place] [address] [phone] Potassium 4.1 mmol/L Normal 3.5-5.0 Chloride 105 mmol/L Normal 101-111 Co2 Carbon Dioxide 29 mmol/L Normal 22-32 Anion Gap 6 mmol/L Normal 2-11 Glucose 110 mg/dL High 70-100 Blood Urea Nitrogen 19 mg/dL Normal 6-24 Creatinine 0.98 mg/dL High 0.51-0.95 BUN/Creatinine Ratio 19.4 Normal 8-20 Calcium 9.2 mg/dL Normal 8.6-10.3 Egfr Non- 58.3 >60 Egfr 70.5 >60 11 Urinalysis Profile 02/21/2019 [facility] Urine Appearance Cloudy [address] [place] [address] [phone] Urine Specific Gillespie 1.006 Low 1.010-1.030 Urine pH 6.0 Normal [...] Urine Color Red Abnormal CBC Auto 02/21/2019 [facility] White Blood 10.9 10^3/uL High 3.5-10.[address] [place] [address] [phone] Red Blood Count 5.16 10^6/uL High 3.70-4.87 [...] Blood Cells % 0.0 Neph Routine 02/21/2019 [facility] Total Protein Random 69 mg/ dL [address] [place] [address] [phone] Creatinine Random Urine 42.16 mg/dL Laboratory test 02/21/2019 [facility] Anti Nuclear 0.6 U [address] [place] [address] [phone] Bety Igg AB Reflex 02/21/2019 [facility] SS-A/Ro Antibody <0.2 U [address] [place], [place] [id number] [phone] SS-B/La Antibody <0.2 U 14 Sm (Ron) IgG Antibody <0.2 U 15 EXECUTIVE CANDIDATE DEVELOPER Antibody, IgG 0.9 U 16 Scl-70 (Scleroderma) Antibody <0.2 U 17 Ally-1 Antibody <0.2 U 18 Laboratory test 02/21/2019 [facility] Glomerular <0.2 U 19 finding [address] [facility] [place] [address] Membrane [phone] Neutrophil 02/21/2019 [facility] C-Anca Negative Negative Cytoplasmic AB [address] [place] [address] [phone] P-Anca Negative Negative 20 Anca Panel For 02/21/2019 [facility] Myeloperoxidase AB < 0.2 U [address] [place] [address] [phone] Proteinase 3 AB < 0.2 U 22 Laboratory test 12/29/2018 [facility] Erythrocyte Sed 5 mm/Hr Normal 0-29 finding [address] [facility] [place] [address] [phone] C Reactive Protein 5.18 mg/L Normal <8.01 Laboratory test finding 11/27/2018 [facility] Proteinase 3 <0.2 U [address] [place] [phone] Myeloperoxidase AB <0.2 U 24 Nuclear AB 11/27/2018 [facility] Nuclear Ab Positive 1:160 Abnormal 25 (Yumiko) By Ifa [address] [facility] (Yumiko) by Ifa, [place] [address] IgG [phone] Yumiko Titer: 1:160 Yumiko Pattern: Dense Fine Speck <SEE NOTE> 26 Urinalysis Profile 11/12/2018 [facility] Urine Color Straw [address] [place] [address] [phone] Urine Appearance Clear Urine Specific Gillespie 1.004 Low 1.010-1.030 Urine pH 6.0 Normal 5-9 Urine Urobilinogen Negative Negative Urine Ketones Negative Negative Urine Protein Negative Negative Urine Leukocytes Negative Negative Urine Blood Negative Negative Urine Nitrite Negative Negative Urine Bilirubin Negative Negative Urine Glucose Negative Negative Comp Metabolic 11/12/2018 [facility] Sodium 141 mmol/L Normal 135-145 Panel [address] [place], [place] [address] [phone] Potassium 4.4 mmol/L Normal 3.5-5.0 Chloride 106 [...] Egfr Non- 59.0 >60 Egfr 71.4 >60 27 CBC Auto 11/12/2018 [facility] White Blood 5.9 10^3/uL Normal 3.5-10.[address] [place] [address] [phone] Red Blood Count 5.45 10^6/uL High 3.70-4.87 [...] % Nucleated Red Blood Cells % 0.2 Laboratory 11/12/2018 [facility] Erythrocyte 13 mm/Hr Normal 0 -29 test finding [address] [place] [address] [phone] Anca AB Ser 11/12/2018 [facility] C-Anca Positive Abnormal Negative If [address] 1:32 [place] [address] [phone] P-Anca Negative Negative 28 1 Because ethnic data is not always [...] by: [facility] [address] [place] [address] Communications Superintendent: Adin Bower M.D. Ph.D.; CLIA# [id number] 3 REFERENCE VALUE <0.4 (Negative) 4 REFERENCE VALUE <0.4 (Negative) Test Performed by: [facility] [address] Communications Superintendent: Adin Bower M.D. Ph.D.; CLIA# [id number] 5 REFERENCE VALUE <0.4 (Negative) Test Performed by: [place] [address] Communications Superintendent: Adin Bower M.D. Ph.D.; CLIA# [id number] 6 REFERENCE VALUE <0.4 (Negative) Test Performed by: [facility] [address] Communications Superintendent: Adin Bower M.D. Ph.D.; CLIA# [id number] 7 REFERENCE VALUE <=1.0 (Negative) Test Performed by: [place] [address] Communications Superintendent: Adin Bower M.D. Ph.D.; CLIA# [id number] 8 SEE RESULT BELOW Name: SPENCER DOTSON : [address]: Brandin Chanel MD Acct: [id number] Unit: [id number] AGE: 58 Location: Re03/10/19 SEX: F Status: REG REF SPEC: [id number] JERI: 03/10/[address]: Jean Mallory MD REQ: [id number] RECD: 03/10/19 STATUS: JO ASHRAF DR: Brandin Chanel MD _ ORDERED: PTH HANDLING CH, LEVEL 1, INTRAOP CON-GR ADDENDUM Consultation with Diomedes Tuttle MD at [facility], [place], [place], outside accession number [id number], our surgical number [id number]. The consultation reveals: / / / / (Original consultation report scanned into Pathology Consults.) Addendum Signed (signature on file) Haley Donnelly MD 1449 FINAL DIAGNOSIS Kidney, right, biopsy: Pending diagnosis from [facility] Renal Pathology. CLINICAL HISTORY Vasculitis CONTINUED ON NEXT PAGE DEPARTMENT OF PATHOLOGY, [address] [place] [address] Juan Mendoza M.D. Director [facility] # [id number] GROSS DESCRIPTION The specimen is received fresh labeled, Right Kidney, and consists of two valle -red soft tissue cores averaging 1.8 x 0.1 cm. The specimen is entirely submitted to [facility] for renal analysis. Per established hospital medical staff protocol, no tissue is submitted. Gross only. Signed by and Reported on: Haley Donnelly MD 03/10/19 1258 END OF REPORT DEPARTMENT OF PATHOLOGY, [address] [place] [address] Juan Mendoza M.D. Director [facility] # [id number] 9 Standard intensity warfarin therapeutic range: 2.0-3.0 High intensity warfarin therapeutic range: 2.5-3.5 10 SEE RESULT BELOW Name: SPENCER DOTSON : [address]: Arminda Li MD Acct: [id number] Unit: [id number] AGE: 58 Location: [facility] Re02/21/19 SEX: F Status: REG REF SPEC: [id number] JERI: 02/21/[address]: Arminda Li MD REQ: [id number] RECD: 02/21/19 STATUS: COMP _ SOURCE: URINE SPDESC: ORDERED: Urine Culture Procedure Result Reported Site Urine Culture Final 02/23/19- 1217 ML No growth of clinically significant organisms * ML - Main Lab . END OF REPORT DEPARTMENT OF PATHOLOGY, [address] [place] [address] Juan Mendoza M.D. Director [facility] # [id number] 11 Because ethnic data is not always [...] REFERENCE VALUE <=1.0 (Negative) Test Performed by: [employer] [facility] [place] [employer] [place] [id number] Communications Superintendent: Adin Bower M.D. Ph.D.; [facility]# [id number] 13 REFERENCE VALUE <1.0 (Negative) 14 REFERENCE VALUE <1.0 (Negative) 15 REFERENCE VALUE <1.0 (Negative) 16 REFERENCE VALUE <1.0 (Negative) 17 REFERENCE VALUE <1.0 (Negative) 18 REFERENCE VALUE <1.0 (Negative) Test Performed by: [employer] [facility] [place] [address] Communications Superintendent: Adin Bower M.D. Ph.D.; CLIA# [id number] 19 REFERENCE VALUE <1.0 (Negative) Test Performed by: [facility] [address] Communications Superintendent: Adin Bower M.D. Ph.D.; CLIA# [id number] 20 Negative for cANCA and pANCA patterns by immunofluorescence. ADDITIONAL INFORMATION This test was developed and its performance characteristics determined by [facility] in a manner consistent with CLIA requirements. This test has not been cleared or approved by the U.S. Food and Drug Administration. Test Performed by: [facility] [address] Communications Superintendent: Adin Bower M.D. Ph.D.; CLIA# [id number] 21 REFERENCE VALUE <0.4 (Negative) 22 REFERENCE VALUE <0.4 (Negative) Test Performed by: [facility] [address] Communications Superintendent: Adin Bower M.D. Ph.D.; CLIA# [id number] 23 REFERENCE VALUE <0.4 (Negative) Test Performed by: [facility] [address] 24 REFERENCE VALUE <0.4 (Negative) Test Performed by: [facility] [employer] - [address] [address] 25 REFERENCE VALUE <1:80 (Negative) 26 Dense Fine Speckled Test Performed by: [facility] - [address] [address] 27 Because ethnic data is not always readily [...] 15-29 5 Kidney failure <15 (or dialysis) 28 Positive for cANCA pattern by immunofluorescence. Suggest further testing for anti-proteinase 3 (anti-PR3) antibodies, if clinically indicated. ADDITIONAL INFORMATION This test was developed and its performance characteristics determined by [facility] in a manner consistent with CLIA requirements. This test has not been cleared or approved by the U.S. Food and Drug Administration. Test Performed by: [facility] [employer] - [address] [address] Procedures Date Code Description Status 11/03/2018 82844 EKG Tracing & Interpretation Completed 11/28/2016 379114327 Bone Mineral Density Test Completed 10/03/2016 412135680 Diabetic Retinal Eye Exam Completed 08/12/2016 [id number] Diabetic Retinal Eye Exam Completed 07/29/2016 405874733 Diabetic Retinal Eye Exam Completed 07/25/2016 827974704 Diabetic Retinal Eye Exam Completed Medical Devices Description No Information Available Encounters Type Date Location Provider Dx Diagnosis Office Visit 03/18/2019 [facility] Nephrology Brandin Chanel, R76.0 Raised antibody 3:30p MD titer M35.9 Systemic involvement of connective tissue, unspecified Office Visit 02/17/2019 [facility] Sofía M35.9 Systemic 9:00a [facility] Vizcaino involvement of connective tissue, unspecified R51 Headache [...] [facility] ap[facility] (adult) [facility] (pediatric) R06.02 Shortness of breath Office Visit 11/03/2018 Demi Anglin G47.33 Obstructive sleep 4:20p Cardiology Sejal Ferrara apnea (adult) (pediatric) R00.2 Palpitations I49.3 Ventricular premature depolarization R94.31 Abnormal electrocardiogram [ECG] [EKG] I36.1 Nonrheumatic tricuspid (valve) insufficiency Assessments Date Code Description Provider 04/09/2019 M35.9 Systemic involvement of connective Mario Camacho M.D. tissue, unspecified 04/09/2019 Z79.899 Other keno terminal operator (current) drug therapy Mario Camacho M.D. 04/09/2019 R76.8 Other specified abnormal immunological Mario Camcaho M.D. findings in serum 04/09/2019 R76.0 Raised antibody titer Mario Camacho M.D. 04/09/2019 M25.579 Pain in unspecified ankle and joints Mario Camacho M.D. of unspecified foot 03/18/2019 R76.0 Raised antibody titer Brandin Chanel [...] Nori Ferrara M.D. (pediatric) 11/03/2018 R00.2 Palpitations Jacqueline Celis.D. 11/03/2018 I49.3 Ventricular premature depolarization Nori Ferrara M.D. 11/03/2018 R94.31 Abnormal electrocardiogram [ECG] [EKG] Nori Ferrara M.D. 11/03/2018 I36.1 Nonrheumatic tricuspid (valve) Nori Ferrara M.D. insufficiency Plan of Treatment Future Appointment(s):05/18/2019 10:20 am - Mario Camacho M.D. at [facility]05/14/2019 9:30 am - Sofía Vizcaino M.D. at [facility]06/10/2019 9:00 am - Ngoc Fowler MD at [facility]04/09/2019 - Mario Camacho M.D.M35.9 Systemic involvement of connective tissue, unspecifiedFollow up:Follow up in 6 weeks or sooner if slwupiJ08.899 Other assisted (current) drug cmrihblZ43.8 Other specified abnormal immunological findings in fquyjN54.0 Raised antibody xsuhkT59.579 Pain in unspecified ankle and joints of unspecified footNew Therapy:Physical Therapy Functional Status Description No Information Available Mental Status Description No Information Available Referrals Refer to Reason for Referral Status Appt Date Simone Keyes D.D.S. MAD fabrication for mild DELANO [facility] [address] [place] [address] [phone] Beth Romano M.D. Please evaluate for POTS disease in Sent patient with dysautonomia [address] [place] [address] [phone]
--- OUTSIDE RECORDS SUMMARY | 2019-05-09 08:37 | XMS REPORT | Summary of Care ---
:1960 Author Organization [facility] Address [address] [place] [address] Care Team Providers Name Role Phone Diego Reece MD Primary Care Provider Reason for Referral Consultation (Routine) Status Reason Specialty Diagnoses / Referred By Referred To Contact Procedures Contact Open Specialty Nephrology Diagnoses Gross hematuria Lesion of bladder Jens Ordoñez DiFilippo, William, Services MD MD Required [address] [place] [address] [place] [address] [address] Suite Phone: [address] [place], [place] Fax: [phone] Email: [email or web address] Email: [email or web address] Reason for Visit Reason Comments Post-op S/P tumor removal Encounter Details Date Type Department Care Team Description 04/12/2019 Office Visit [facility] Urology Jens Ordoñez MD Gross hematuria (Primary Dx); [facility], [address] [place]ion [place] [address] [place] [phone] Allergies Active Allergy Reactions Severity Noted Date Comments Aspirin Nausea And Vomiting 04/02/2019 Citalopram Hydrobromide Hives 05/15/2015 Doxycycline Tinnitus 03/17/2015 Nortriptyline Other (See Comments), Low 05/05/2017 Reaction heart Palpitations palpitation documented as of this encounter (statuses as of 04/13/2019) Medications Medication Sig Dispensed Refills Start Date End Date Status ondansetron (ZOFRAN) Take 4 mg by 0 Active 4 MG tablet mouth every 8 (eight) hours as needed for Nausea budesonide-formoterol Inhale 2 puffs 0 05/14/2017 Active (SYMBICORT) 80-4.5 into the lungs MCG/ACT inhaler every morning albuterol (VENTOLIN Ventolin HFA 90 mcg/actuation aerosol inhaler 0 Active HFA) 108 (90 Base) Inhale 2 puffs every 6 hours by inhalation route as needed. MCG/ACT inhaler Diclofenac Sodium APPLY 2 GRAMS TO 2 07/03/2018 Active (VOLTAREN) 1 % GEL THE FEET TWO TIMES DAILY NEEDED FOR PAIN clonazePAM (KLONOPIN) DISSOLVE 1 TABLET 0 02/18/2019 Active 0.125 MG BY MOUTH TWO disintegrating tablet TIMES DAILY NEEDED FOR VERTIGO AND ANXIETY - MAXIMUM DAILY DOSE OF 2 PER DAY estradiol-levonorgest Climara Pro 0.045 mg-0.015 mg/24 hr transdermal patch 0 Active rel (CLIMARA PRO) apply 1 patch weekly 0.045-0.015 MG/DAY meclizine (ANTIVERT) meclizine 12.5 mg tablet 0 07/20/2018 Active 12.5 MG tablet PRN Meth-Hyo-M Bl-Na Take 118 mg by 20 capsule 5 02/26/2019 Active Phos-Ph Blair (URIBEL) mouth Three times 118 MG CAPS daily as needed (for bladder pain) propranolol (INDERAL) propranolol 20 mg tablet 0 Active 20 MG tablet 1 tablet as needed Acetaminophen 325 MG Take 2 tablets by 30 tablet 0 04/06/2019 04/16/2019 Active Oral Tablet mouth every 6 (six) hours as needed for Pain for up to 10 days FML Forte 0.25 % 0 04/08/2019 Active Ophthalmic Suspension documented as of this encounter (statuses as of 04/13/2019) Active Problems Problem Noted Date Lesion of bladder 03/19/2019 Gross hematuria Urinary tract infection documented as of this encounter (statuses as of 04/13/2019) Social History Tobacco Use Types Packs/Day Years Used Date Never Smoker 0 Smokeless Tobacco: Never Used Alcohol Use Drinks/Week oz/Week Comments Yes Sex Assigned at Date Recorded Not on file Job Start Date Occupation Industry Not on file Not on file Not on file Travel History Travel Start Travel End No recent travel history available. documented as of this encounter Last Filed Vital Signs Vital Sign Reading Time Taken Comments Blood Pressure 130/84 04/12/2019 2:29 PM EST Pulse 90 04/12/2019 2:29 PM EST Temperature 36.3 04/12/2019 2:29 PM EST C (97.4 F) Respiratory Rate 18 04/12/2019 2:29 PM EST Oxygen Saturation 98% 04/12/2019 2:29 PM EST Inhaled Oxygen Concentration - - Weight 90.7 kg (200 lb) 04/12/2019 2:29 PM EST Height 177.8 cm (5' 10") 04/12/2019 2:29 PM EST Body Mass Index 28.7 04/12/2019 2:29 PM EST documented in this encounter Progress Notes Jens Ordoñez MD - 04/12/2019 2:45 PM EST CHIEF COMPLAINT: Gross hematuria and flank pain. HISTORY OF PRESENT ILLNESS: The patient is a pleasant 58-year-old lady who has a history of a granulomatosis with polyangiitis, and developed gross hematuria. She also had an episode about 4 years ago, was evaluated by Dr. Nicholson, and diagnosed with hemorrhagic cystitis and treated with antibiotics. She reported to me that cystoscopy at that time was negative, and a renal ultrasound was not concerning. She was also diagnosed with Jeremiah's granulomatosis. She complained of intermittent hematuria for about 2 months' time. She actually had a kidney biopsy done by her kieselguhr regenerator operator in [place], which came back benign and patient continues to have right flank discomfort since the biopsy. On a CT- IVP that we did here in the office for gross hematuria, there was a small perirenal hematoma, but otherwise her CT-IVP was negative. Her cystoscopy showed frongy lesions at the bladder neck and patient underwent a resection of thoselesions in the operating room, and she is here to discuss the pathology results. She continues to complain of right flank discomfort, but no gross hematuria. No fever, chills, nausea, vomiting. She is followed by tin cutter in [facility]. Patient otherwise denies any change in past medical history, past surgeries, medications, allergies, social history, family history, review of systems. PE: Vitals signs: Visit Vitals BP 130/84 Pulse 90 Temp 36.3 C Resp 18 Ht 1.778 m Wt 90.7 kg (200 lb) SpO2 98% BMI 28.70 kg/m . The patient is well developed and well nourished, in no acute distress. Alert, awake, and oriented x3 with no cognitive deficits. Heart: Regular rate and rhythm. Lungs: Clear to auscultation. Abdomen: Soft, nontender and nondistended with positive bowel sounds. There is no hepatosplenomegaly and no palpable masses. All extremities: No clubbing, cyanosis or edema. 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 ASSESSMENT/PLAN: The patient does not have a bladder cancer, which I am very happy about. She has not had any hematuria for about a month. I asked the patient to call me if she develops gross hematuria, but otherwiseI would like to see her back in 6 months with UA and cytologies. I will also set her up to see Dr. Infante in our Nephrology Department, as per patient's request for a second opinion. I appreciate the opportunity to see this patient and I will keep you posted on her progress. Jens Ordoñez MD FACS Supervisor Diagnostic Departments of Urology and Radiation Oncology [place], [place] documented in this encounter Plan of Treatment Date Type Specialty Care Team Description 10/01/2019 Office Visit Urology Jens Ordoñez MD [address] [place] [address] [phone] Name Type Priority Associated Diagnoses Date/Time Urine Culture Microbiology Routine Gross hematuria 04/12/2019 2:52 PM EST Name Type Priority Associated Order Schedule Diagnoses Urinalysis with Lab Routine Gross hematuria 1 Occurrences microscopic starting 04/13/2019 until 10/24/2019 Cytology, Non Pathology and Routine Gross hematuria 1 Occurrences Gynecological Cytology starting 04/13/2019 until 10/24/2019 Name Type Priority Associated Order Schedule Diagnoses Ambulatory referral Outpatient Referral Routine Gross hematuria Ordered: to Nephrology Lesion of bladder 04/13/2019 Health Maintenance Due Date Last Done Comments Hepatitis C Screening (B. 1960 [id number]) MMR Vaccines (1 of 1 - Standard 1961 series) Pneumococcal Vaccine: Pediatrics 1966 (0 to 5 Years) and At-Risk Patients (6 to 64 Years) (1 of 3 - PCV13) HIV Screening 1973 Hepatitis B Vaccines (1 of 3 - 08/22/1979 Risk 3-dose series) Cervical Cancer Screening 5 years 1981 Breast Cancer Screening 2 years 2010 Colon Cancer Screening 10 yrs 2010 DTaP,Tdap,and Td Vaccines (2 - Td) 07/26/2014 06/28/2014 Influenza Vaccine 02/23/2019 Pneumococcal Vaccine: 65+ Years (1 2025 of 2 - PCV13) HIB Vaccines Aged Out No longer eligible based on patient's age to complete this topic Hepatitis A Vaccines Aged Out No longer eligible based on patient's age to complete this topic IPV Vaccines Aged Out No longer eligible based on patient's age to complete this topic Varicella Vaccines Aged Out No longer eligible based on patient's age to complete this topic documented as of this encounter Procedures Procedure Name Priority Date/Time Associated Comments Diagnosis URINALYSIS WITH Routine 04/12/2019 2:52 Gross hematuria Results for this MICROSCOPIC PM EST procedure are in the results section. documented in this encounter Results Urinalysis with microscopic (04/12/2019 2:52 PM EST) Color Colorless [facility] Clarity Clear [facility] Specific Fletcher 1.006 1.003 - 1.030 [facility] PH Urine 7.0 5.0 - 8.0 [facility] Total Protein UA Negative Negative mg/dL [facility] Glucose UA Negative Negative mg/dL [facility] Ketone Urine Negative Negative mg/dL [facility] Bilirubin Negative Negative [facility] Hemoglobin, Urine 2+ (A) Negative [facility] Leukocyte Esterase Trace (A) Negative Max/uL [facility] Nitrite Negative Negative [facility] WBC 1 0 - 5 /HPF [facility] RBC 2 0 - 3 /HPF [facility] Squam Epithel, UA 1 (A) None /HPF [facility] Specimen Urine Performing Organization Address City/State/Zipcode Phone Number [facility] CL[facility]ICAL [facility] [address] [place] [address] [facility] [place] [address] Pathology documented in this encounter Visit Diagnoses Diagnosis Gross hematuria - Primary Lesion of bladder Unspecified disorder of bladder documented in this encounter
--- OUTSIDE RECORDS SUMMARY | 2019-05-09 08:37 | XMS REPORT | Summary of Care ---
:1960 Author Organization [facility] Address [address] [place] [address] Care Team Providers Name Role Phone Diego Reece MD Primary Care Provider Reason for Visit Auth/Cert Status Reason Specialty Diagnoses / Procedures Referred By Contact Referred To Contact Diagnoses Bladder lesion Gross hematuria Procedures CYSTOURETHROSCOPY, W/FULGURATION &/OR RESECTION; BLADDER TUMOR(S) 0.5-2.0 CM Encounter Details Date Type Department Care Team Description 04/06/2019 Hospital Encounter 05E PERIOP Jens Ordoñez MD [address] [place] [address] [place] [address] [phone] Allergies Active Allergy Reactions Severity Noted Date Comments Aspirin Nausea And Vomiting 04/02/2019 Citalopram Hydrobromide Hives 05/15/2015 Doxycycline Tinnitus 03/17/2015 Nortriptyline Other (See Comments), Low 05/05/2017 Reaction heart Palpitations palpitation documented as of this encounter (statuses as of 04/06/2019) Medications Medication Sig Dispensed Refills Start Date End Date Status ondansetron (ZOFRAN) Take 4 mg by mouth 0 Active 4 MG tablet every 8 (eight) hours as needed for [...] 02/18/2019 Active 0.125 MG BY MOUTH TWO TIMES disintegrating tablet DAILY NEEDED FOR VERTIGO AND ANXIETY - [...] CAPS daily as needed (for bladder pain) Additional information Patient not taking. Reported on 03/19/2019 3:34 PM propranolol (INDERAL) 20 propranolol 20 mg tablet 0 Active MG tablet 1 tablet as needed Acetaminophen 325 MG Oral Take 2 tablets by 30 tablet 0 04/06/20192018 Active Tablet mouth every 6 (six) hours as needed for Pain for up to 10 days Phenazopyridine HCl 100 Take 1 tablet by 9 tablet 0 04/06/2019 04/09/2019 Active MG Oral Tablet (PYRIDIUM) mouth Three times daily as needed for Pain (bladder pain) for up to 3 days documented as of this encounter (statuses as of 04/06/2019) Active Problems Problem Noted Date Lesion of bladder 03/19/2019 Gross hematuria Urinary tract infection documented as of this encounter (statuses as of 04/06/2019) Social History Tobacco Use Types Packs/Day Years Used Date Never Smoker Smokeless Tobacco: Never Used Alcohol Use Drinks/Week oz/Week Comments Yes Sex Assigned at Date Recorded Not on file Job Start Date Occupation Industry Not on file Not on file Not on file Travel History Travel Start Travel End No recent travel history available. documented as of this encounter Last Filed Vital Signs Vital Sign Reading Time Taken Comments Blood Pressure 121/76 04/06/2019 6:00 PM EST Pulse 68 04/06/2019 6:00 PM EST Temperature 36.3 04/06/2019 5:00 PM EST C (97.3 F) Respiratory Rate 16 04/06/2019 6:00 PM EST Oxygen Saturation 98% 04/06/2019 6:00 PM EST Inhaled Oxygen Concentration - - Weight - - Height - - Body Mass Index - - documented in this encounter Discharge Instructions Patient InstructionsRuth [place] RN - 04/05/2019 8:55 AM EST PRE-ANESTHESIA INSTRUCTIONS Tentative Date: 04/06/2019 Tentative Arrival Time: 1345 Take medications morning of surgery with a few sips of water/clear liquid [employer]INT[employer] JOIN[employer] HELPER Medications Medication Sig Pre-Anesthesia Instructions for Medications albuterol (VENTOLIN HFA) 108 (90 Base) MCG/ACT inhaler Ventolin HFA 90 mcg/actuation aerosol inhaler Inhale 2 puffs every 6 hours by inhalation route as needed. Continue as prescribed - TAKE MORNING OF SURGERY budesonide-formoterol (SYMBICORT) 80-4.5 MCG/ACT inhaler Inhale 2 puffs into the lungs every morning Continue as prescribed - TAKE MORNING OF SURGERY clonazePAM (KLONOPIN) 0.125 MG disintegrating tablet DISSOLVE 1 TABLET BY MOUTH TWO TIMES DAILY NEEDED FOR VERTIGO AND ANXIETY - MAXIMUM DAILY DOSE OF 2 PER DAY Continue as prescribed Diclofenac Sodium (VOLTAREN) 1 % GEL APPLY 2 GRAMS TO THE FEET TWO TIMES DAILY NEEDED FOR PAIN Continue as prescribed - NOT TO BE TAKEN DAY OF SURGERY estradiol-levonorgestrel (CLIMARA PRO) 0.045-0.015 MG/DAY Climara Pro 0.045 mg-0.015 mg/24 hrtransdermal patch apply 1 patch weekly Continue as prescribed meclizine (ANTIVERT) 12.5 MG tablet meclizine 12.5 mg tablet PRN Continue as prescribed ondansetron (ZOFRAN) 4 MG tablet Take 4 mg by mouth every 8 (eight) hours as needed for Nausea Continue as prescribed propranolol (INDERAL) 20 MG tablet propranolol 20 mg tablet 1 tablet as needed Continue as prescribed ADULT AND CHILDREN 12 years old and older: These instructions apply to food and liquids by mouth andfeeding tube. Stop solid food 8 hours before your scheduled arrival at hospital (This includes gum and candies) Stop all clear liquids 2 hours before your scheduled arrival at hospital. Examples of Approved Clear Liquids for Adults: Water or ice, apple juice, maicol daniel, non-red and non-purple Gatorade or Powerade. NOTHING ELSE, NO SUBSTITUTIONS! Examples of solids include: pureed solids, milk, formula, gum, candy, lozenges, pulp juices, nectars, or any liquid you cannot see through. PAIf you are taking Motrin, Advil, Ibuprofen, or other anti-inflammatories, call your surgeon for specific instructions regarding stopping them prior to surgery. You may take Tylenol (acetaminophen) for pain. No alcohol, vitamins and supplements, illegal drugs or smoking 24 hours before surgery. Call your surgeon if you are sick, have a cold or fever. Make arrangements to have a responsible adult drive you home after surgery. Wear comfortable clothes, no valuables, remove all jewelry and piercing, no makeup or nail micronesian. Do not use oil, lotion or powder on your skin before coming for your procedure. You will meet with your Anesthesiologist the day of your surgery. The Night before Your Procedure: You should receive a phone call the business day before (Friday for Friday procedures) between 3 and6 PM to confirm your arrival time the next day, as any time given to you before this was only tentative. To finalize Adult Operating Room (5E) will only call you if your arrival time has changed. If you have any questions, please call The Day of Your Procedure: Please park in the East Garage. Patient and Visitor parking is located on the 1st and 2nd floors of the garage. The garage accepts both lucas and credit cards for payment of parking fees. There also is an NANCY located in the Main [facility]. [employer] Parking - [employer] Parking is available in the Hospital front pokagon for an additional $5.00 on top of regular parking fees. 1st floor - If you park on the 1st floor of the garage, please walk across [facility] and enter through the Main Hospital entrance. Walk past the Visitor check in and go to the Registration desk on the right, where you will be registered for your procedure and your family will get their visitor passes. All adults need to provide photo ID. You will then be told where to go for your procedure. 2 nd floor - If you park on the 2nd floor of the garage, please walk across bridge over [facility]. Do NOT go to the Visitor checking in on the 2nd floor. Take either the stairs or the elevator to yourright and go down to the 1st floor Main Lobby. Walk past the Visitor check in and go to the Registration desk on the right, where you will be registered for your procedure and your family will get their visitor passes. All adults need to provide photo ID. You will then be told where to go for yourprocedure. documented in this encounter Plan of Treatment Name Type Priority Associated Order Schedule Diagnoses Surgical Pathology Pathology and Routine Once for 1 Exam ( Only) Cytology Occurrences starting 04/06/2019 until 04/06/2019 Health Maintenance Due Date Last Done Comments Hepatitis C Screening (B. 1960 [id number]) MMR Vaccines (1 of 1 - Standard [...] this topic documented as of this encounter Results Not on filedocumented in this encounter
[2019-05-09 08:42] VITALS: BP 127/80
--- NOTE | 2019-05-09 09:12 | UC ---
Complaint Female HPI - HPI Summary HPI Summary: Patient is 58 year old female, who present today to the urgent care with urinary symptoms that started this morning. She reports pressure in lower abdomen, increased urgency, discomfort upon urination. Pt had recent surgery on bladder to remove tumor(benign) in 2018 in [place]. Her urologist is Dr. Ordoñez.. No blood in urine Denies any low back pain. Denies any fevers or chills. 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 - History Of Current Complaint Chief Complaint: UCGU Stated Complaint: UTI Time Seen by Provider: 05/09/19 08:43 Hx Obtained From: Patient Pain Intensity: 3 - Allergies/Home Medications Allergies/Adverse Reactions: Allergies Allergy/AdvReac Type Severity Reaction Status Date / Time citalopram [From Celexa] Allergy Hives Verified 05/09/19 08:35 Opioids - Morphine Analogues Allergy Nausea Verified 05/09/19 08:35 doxycycline AdvReac Severe Unknown Verified 05/09/19 08:35 Reaction Details PMH/Surg Hx/FS Hx/Imm Hx - Additional Past Medical History Additional PMH: Past Medical History : Hypertension, asthma, diagnosed granulomatosis Past Surgical History: Gallbladder, urinary bladder tumor removal Family History : non contributory Social History : Rare alcohol, non smoker, no drug use. Previously Healthy: Yes - Surgical History Surgical History: Yes Surgery Procedure, Year, and Place: GALLBLADDER; bladder tumor removal 2018 - Family History Known Family History: Positive: Non-Contributory - Social History Alcohol Use: Rare Substance Use Type: None Smoking Status (MU): Never Smoked Tobacco Have You Smoked in the Last Year: No Review of Systems All Other Systems Reviewed And Are Negative: Yes Constitutional: Positive: Negative Skin: Positive: Negative Eyes: Positive: Negative ENT: Positive: Negative Respiratory: Positive: Negative Cardiovascular: Positive: Negative Gastrointestinal: Positive: Negative Genitourinary: Positive: Dysuria, Frequency, Urgency. Negative: Hematuria Motor: Positive: Negative Neurovascular: Positive: Negative Musculoskeletal: Positive: Negative Neurological: Positive: Negative Psychological: Positive: Negative Is Patient Immunocompromised?: No Physical Exam - Summary Physical Exam Summary: Physical Exam: Const: Appears well. No signs of apparent distress present. Alert and oriented x 3. Musculo: Walks with a normal gait. Head/Face: Atraumatic, normocephalic on inspection. Eyes: EOMI and PERRLA in both eyes. Conjunctivae clear. No discharge noted ENT: Hearing normal Respiratory: Respirations are unlabored. Lungs clear to auscultation bilaterally, no wheezing , rhonchi or rales noted . CVS: Regular rate and Rhythm, S1S2 normal , no murmurs identified. Extremities: Peripheral circulation is grossly normal. Pulses 2+ Abdomen : Soft with mild suprapubic discomfort, nondistended , Bowel sounds present . No guarding , rebound tenderness or rigidity noted. No CVA tenderness noted bilaterally Skin: No lesions or rash located on the upper extremities or on the lower extremities. Neuro: Cranial nerves II to XII intact, motor and sensory intact. DTR Intact bilaterally. Mood is normal. Affect is normal. Triage Information Reviewed: Yes Vital Signs: Initial Vital Signs Temp 97.4 F 05/09/19 08:37 Pulse 71 05/09/19 08:37 Resp 16 05/09/19 08:37 BP 127/80 05/09/19 08:37 Pulse Ox 99 05/09/19 08:37 Vital Signs Reviewed: Yes Complaint Female Dx - Course Course Of Treatment: During the visit today, we obtained urinalysis which demonstrated 3+ blood and 3+ leukocyte esterase We discussed the findings which are consistent with UTI and further plan and treated with antibiotics.. I will prescribe the medication to the pharmacy . We discussed that she should follow-up with a urologist , Dr. Ordoñez in [place]. Patient expressed understanding . - Differential Dx/Diagnosis Provider Diagnosis: UTI (urinary tract infection) Discharge ED - Sign-Out/Discharge Documenting (check all that apply): Patient Departure All imaging exams completed and their final reports reviewed: No Studies - Discharge Plan Condition: Stable Disposition: HOME Prescriptions: Fluconazole 150 MG TAB* [Diflucan 150 MG TAB*] 150 mg PO ONCE 1 Days #1 tablet Sulfamethox/Trimethoprim DS* [Bactrim DS 800/160 TAB*] 1 tab PO BID 5 Days #10 tab Patient Education Materials: Urinary Tract Infection in Women (ED) Referrals: Diego Reece MD [Primary Care Provider] - Additional Instructions: Please start taking the medication as prescribed to the pharmacy . Follow up with your urologist in [place] as we discussed. Follow up with your primary care doctor within a week Patients blood pressure slightly high in Urgent care today , plan follow up with PCP for better control Return to Urgent care / ER if symptoms get worse. - Billing Disposition and Condition Condition: STABLE Disposition: Home
== END 2019-05-09 09:31 | disposition home or self-care (01) ==
LOC: UCEAST 08:31
DX: N39.0 Urinary tract infection, site not specified (principal); Z88.1 Allergy status to other antibiotic agents; Z88.5 Allergy status to narcotic agent; Z88.8 Allergy status to other drugs, medicaments and biological substances
CPT/HCPCS: 81003; 87077; 87086; 87186; 99212; G0463

== ENCOUNTER 2020-07-19 08:30 | Observation (INO) ==
[2020-07-19] MEDS ORDERED: NS 0.9% 1000 ml BAG 1,000 ML IV ONE ×2 (09:56→12:48)
[2020-07-19] MEDS ORDERED: Dexamethasone IV 4 MG/ML VIAL 1 ml VIAL IV SLOW PU ONE ×2 (09:57→21:00)
[2020-07-19] MEDS ORDERED: Magnesium Sulfate 2 gm BAG 2 GM/50 ML BAG IVPB ONE ×2 (09:57→12:03)
[2020-07-19] MEDS ORDERED: diPHENhydraMINE IV 50 MG/ML 1 ml VIAL (BENADRYL) SLOW PUSH ONE (09:58)
[2020-07-19 11:03] LABS: ABS Lymphocytes 0.7 10^3/ul (1.0-4.8); ABS Monocytes 0.3 10^3/ul (0-0.8); ABS Neutrophils 4.4 10^3/ul (1.5-7.7); Eosinophil % 0.2 %; Hematocrit 39 % (35-47); Hemoglobin 13.2 g/dL (12.0-16.0); Lymphocyte % 13.5 %; Mean Corpuscular HGB Conc 34 g/dL (31-36); Mean Corpuscular Hemoglobin 29 pg (27-31); Mean Corpuscular Volume 87 fL (80-97); Mean Platelet Volume 7.1 fL (7.4-10.4); Nucleated Red Blood Cells % 0.1; Platelet Count 200 10^3/uL (150-450); Red Blood Count 4.53 10^6 /uL (3.70-4.87); Red Cell Distribution Width 13 % (10-15); White Blood Count 5.4 10^3/uL (3.5-10.8)
[2020-07-19 11:22] LABS: Albumin 3.1 g/dL (3.2-5.2); Albumin/Globulin Ratio 0.9 (1-3); BUN/Creatinine Ratio 11.8 (8-20); Calcium 7.4 mg/dL (8.6-10.3); EGFR African American 94.3 (>60); EGFR Non-African American 77.9 (>60); Globulin 3.4 g/dL (2-4); Magnesium 1.4 mg/dL (1.9-2.7); Potassium 3.4 mmol/L (3.5-5.0); Total Bilirubin 0.4 mg/dL (0.2-1.0); Total Protein 6.5 g/dL (6.4-8.9)
[2020-07-19] MEDS ORDERED: Ondansetron 4 mg VIAL 2 MG/ML 2 ml VIAL IV ONE (12:22)
[2020-07-19 12:24] LABS: Urine Appearance Clear; Urine Bilirubin Negative (Negative); Urine Blood 1+ (Negative); Urine Color Straw; Urine Glucose Negative (Negative); Urine Ketones Negative (Negative); Urine Nitrite Negative (Negative); Urine Protein Negative (Negative); Urine Specific Gravity 1.008 (1.010-1.030); Urine Urobilinogen Negative (Negative)
[2020-07-19 12:26] LABS: Urine Bacteria Absent (Absent); Urine Red Blood Cell 1+(3-5/hpf) (Absent); Urine Squamous Epithelial Cell Present (Absent); Urine White Blood Cell Trace(0-5/hpf) (Absent)
[2020-07-19] MEDS ORDERED: Potassium Chloride LIQUID 20 MEQ/15 ML LIQUID PO ONE (12:52)
[2020-07-19] MEDS ORDERED: KCL 20 MEQ/100 ML IVPREMIX 20 MEQ/100 ML BAG IV SCH (13:00)
[2020-07-19] MEDS ORDERED: diPHENhydraMINE IV 50 MG/ML 1 ml VIAL (BENADRYL) IV ONE ×2 (13:07→20:15)
[2020-07-19] MEDS ORDERED: Ondansetron 4 mg VIAL 2 MG/ML 2 ml VIAL IV PRN (14:17)
[2020-07-20 07:22] LABS: BUN/Creatinine Ratio 10.6 (8-20); Calcium 8.5 mg/dL (8.6-10.3); EGFR African American 82.8 (>60); EGFR Non-African American 68.5 (>60); Magnesium 2.3 mg/dL (1.9-2.7); Potassium 3.8 mmol/L (3.5-5.0)
[2020-07-20 08:46] VITALS: BP 123/70
[2020-07-20] MEDS ORDERED: Dexamethasone IV 4 MG/ML VIAL 1 ml VIAL IV SLOW PU SCH (09:00)
== END 2020-07-20 12:05 | disposition home or self-care (01) ==
LOC: MED 08:30 → ED 08:30 → MED 17:38
PROVIDERS: ADMIT Internal Medicine; ATTEND Internal Medicine